=== PATIENT | female | born 2000 | race Caucasian/White ===

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

== ENCOUNTER 2020-07-13 21:06 | Inpatient (IN) ==
[2020-07-13] MEDS ORDERED: LACTATED RINGERS 1,000 ML IV ONE (21:16)
[2020-07-13] MEDS ORDERED: MEPERIDINE 50 MG/1 ML VIAL IV PRN (21:16)
[2020-07-13] MEDS ORDERED: LACTATED RINGERS 500 ML IV PRN (21:16)
[2020-07-13] MEDS ORDERED: ONDANSETRON 4 MG/2 ML VIAL IV PRN (21:16)
[2020-07-13] MEDS ORDERED: LACTATED RINGERS 1,000 ML IV SCH (21:30)
[2020-07-13 21:35] LABS: Basophils % 0.2 % (0.0-0.8); Eosinophils # 0.1 10*3/uL (0.0-0.87); Eosinophils % 0.6 % (0.00-10.9); Hematocrit 32.5 VOL% (35.7-47.0); Hemoglobin 10.5 GM/DL (12.0-16.0); Immature Granulocytes % 0.4 %; Immature Granulocytes Absolute 0.04 #; Lymphocytes # 2.5 10*3/uL (1.4-4.0); Lymphocytes % 27.2 % (21.3-54.2); Mean Corpuscular HGB Conc 32.3 GM/DL (32-36); Mean Corpuscular Volume 83.8 FL (87-102); Mean Platelet Volume 11.3 FL (9.6-12.0); Monocytes % 8.3 % (1.7-12.7); Neutrophils % 63.3 % (38.7-73.9); Platelet Count 245 T/CUMM (130-400); Red Blood Count 3.88 MC/CUMM (3.8-5.5); Red Cell Distribution Width 13.7 % (9.3-17.3)
[2020-07-13 22:06] LABS: Albumin 2.9 G/DL (3.4-5.0); Bilirubin,Total 1.2 MG/DL (0.2-1.0); Calcium 8.7 MG/DL (8.5-10.1); Osmolality,Calculated 266.1 MOS/KG (273-304); Potassium 4.1 MMOL/L (3.5-5.1); Total Protein 7.2 G/DL (6.4-8.2)
[2020-07-14] MEDS ORDERED: CITRIC ACID/SODIUM CITRATE 30 ML UDCUP PO ONE (07:32)
[2020-07-14] MEDS ORDERED: FAMOTIDINE 20 MG/2 ML VIAL IV ONE (07:32)
[2020-07-14] MEDS ORDERED: ePHEDrine 50 MG/ML VIAL IV PRN (07:32)
[2020-07-14] MEDS ORDERED: hydrOXYzine HCL 25 MG/1 ML VIAL IM PRN (07:32)
[2020-07-14] MEDS ORDERED: NALOXONE 0.4 MG/ML VIAL IV PRN (07:32)
[2020-07-14] MEDS ORDERED: diphenhydrAMINE 50 MG/1 ML VIAL IV PRN (07:32)
[2020-07-14] MEDS ORDERED: PROMETHAZINE 25 MG/1 ML VIAL IM PRN (07:32)
[2020-07-14] MEDS ORDERED: fentaNYL 2 MCG/ROPIV 0.2% EPID 100 ML EPIDURAL SCH (08:00)
[2020-07-14] MEDS ORDERED: OXYTOCIN/LR 20 UNIT/1,000 ML BAG IV SCH (08:30)
[2020-07-14] MEDS ORDERED: TRANEXAMIC ACID 1,000 MG/10 ML VIAL ONE (08:56)
[2020-07-14] MEDS ORDERED: OXYTOCIN/LR 20 UNIT/1,000 ML BAG IV ONE ×2 (08:56→09:46)
[2020-07-14] MEDS ORDERED: miSOPROStoL 200 MCG TABLET ONE (08:56)
[2020-07-14] MEDS ORDERED: METHYLERGONOVINE 0.2 MG/1 ML AMP ONE (08:57)
[2020-07-14] MEDS ORDERED: SODIUM CHLORIDE 0.9% 0 ML IV ONE (08:58)
[2020-07-14] MEDS ORDERED: CARBOPROST TROMETHAMINE 250 MCG/ML AMP IM ONE (08:58)
[2020-07-14] MEDS ORDERED: MEASLES/MUMPS/RUBELLA VACCINE 0.5 ML VIAL SUBCUT ONE (09:46)
[2020-07-14] MEDS ORDERED: RHO(D) IMMUNE GLOBULIN 300 MCG SYRINGE IM ONE (09:46)
[2020-07-14] MEDS ORDERED: WITCH HAZEL PADS 100/JAR TOP PRN (09:46)
[2020-07-14] MEDS ORDERED: ACETAMINOPHEN 325 MG TABLET PO PRN (09:46)
[2020-07-14] MEDS ORDERED: HYDROCORTISONE 2.5% RECTAL CREAM 30 GM TUBE TOP PRN (09:46)
[2020-07-14] MEDS ORDERED: ONDANSETRON 4 MG/2 ML VIAL IV PRN (09:46)
[2020-07-14] MEDS ORDERED: oxyCODONE/ACETAMINOPHEN 5-325 MG TABLET PO PRN ×2 (09:46)
[2020-07-14] MEDS ORDERED: BENZOCAINE 20%/MENTHOL 0.5% SPRAY 56 GM CAN TOP PRN (09:46)
[2020-07-14] MEDS ORDERED: DIPH/TET/ACEL PERT BOOSTER VACCINE 0.5 ML VIAL IM ONE (09:46)
[2020-07-14] MEDS ORDERED: BISACODYL 10 MG SUPP RECTAL PRN (09:46)
[2020-07-14] MEDS ORDERED: LANOLIN 50% CREAM 0.3 OZ TUBE TOP PRN (09:46)
[2020-07-14 09:55] LABS: Cord Venous Blood HCO3 21.5 MMOL/L; Cord Venous Blood PCO2 42.1 MMHG; Cord Venous Blood PO2 31.3 MMHG
[2020-07-14 10:01] LABS: Bilirubin,Urine Negative (Negative); Blood, Urine Large mg/dL (Negative); Calcium Oxalate Crystals,Urine Occasional /HPF (Few); Glucose,Urine (UA) Negative (Negative); Ketones,Urine Negative (Negative); Mucus,Urine Many /LPF (Occasional); Nitrite,Urine Negative (Negative); Protein,Urine 30 MG/DL; RBC,Urine 194 /HPF (0-4); Squamous Epithelial Cell,Urine Occasional /HPF (0-10); Urine Appearance Slightly Hazy (Clear); Urine Color Amber (Yellow); WBC,Urine 3 /HPF (0-6)
[2020-07-14] MEDS: IBUPROFEN 800 MG TABLET PO PRN ×2 (13:46→20:00)
[2020-07-14] MEDS: DOCUSATE SODIUM 100 MG CAPSULE PO SCH (20:01)
[2020-07-15] MEDS: IBUPROFEN 800 MG TABLET PO PRN ×2 (03:43→17:08)
[2020-07-15 04:38] LABS: Basophils % 0.2 % (0.0-0.8); Eosinophils # 0.1 10*3/uL (0.0-0.87); Eosinophils % 0.6 % (0.00-10.9); Hematocrit 29.1 VOL% (35.7-47.0); Hemoglobin 9.2 GM/DL (12.0-16.0); Immature Granulocytes % 0.3 %; Immature Granulocytes Absolute 0.03 #; Lymphocytes # 2.8 10*3/uL (1.4-4.0); Lymphocytes % 27.9 % (21.3-54.2); Mean Corpuscular HGB Conc 31.6 GM/DL (32-36); Mean Corpuscular Volume 85.8 FL (87-102); Mean Platelet Volume 11.7 FL (9.6-12.0); Platelet Count 181 T/CUMM (130-400); Red Blood Count 3.39 MC/CUMM (3.8-5.5); White Blood Count 9.9 T/CUMM (4-12)
[2020-07-15] MEDS: DOCUSATE SODIUM 100 MG CAPSULE PO SCH ×2 (09:33→20:58)
[2020-07-15] MEDS: IRON (CARBONYL)/VIT C/B12/FA TABLET PO SCH (09:33)
[2020-07-16 07:40] VITALS: BP 100/58
[2020-07-16] MEDS: DOCUSATE SODIUM 100 MG CAPSULE PO SCH (08:39)
[2020-07-16] MEDS: IRON (CARBONYL)/VIT C/B12/FA TABLET PO SCH (08:39)
== END 2020-07-16 11:00 | disposition home or self-care (01) | DRG 560 ==
LOC: N.LDOUT 21:06 → N.LD 21:08 → N.OB 07-14 12:39
PROVIDERS: ADMIT Specialist; ATTEND Specialist